=== PATIENT | male | born 1945 | race Caucasian/White ===

== ENCOUNTER → 2020-10-23 | Outpatient (CLI) | payer MEDICARE ==
[~2020-10-23] MED LIST: CLINDAMYCIN HC300 MG PO; LIPITOR TAB 2020 MG PO; LISINOPRIL40 MG PO; NORCO 7.5-3251 EACH PO; PLAVIX 75 MG TA75 MG PO; PROVENTIL HFA 61 INH INH; SPIRIVA18 MCG INH; SYMBICORT 160-1 INHA INH; ZYRTEC10 MG PO
== END ==
LOC: KOH-I 08:55
DX: Z87.891 Personal history of nicotine dependence (principal)
CPT/HCPCS: 71271

== ENCOUNTER → 2021-07-27 | Outpatient (CLI) | payer MEDICARE | LOC: EXRD 12:30 | DX: I73.9 Peripheral vascular disease, unspecified (principal); G62.9 Polyneuropathy, unspecified; R09.89 Other specified symptoms and signs involving the circulatory and respiratory systems | CPT/HCPCS: 93922; 93925 ==

== ENCOUNTER → 2021-08-16 | Outpatient (CLI) | payer MEDICARE | LOC: CT 10:41 | DX: M79.662 Pain in left lower leg (principal); M79.661 Pain in right lower leg; J44.9 Chronic obstructive pulmonary disease, unspecified; I10 Essential (primary) hypertension; I70.213 Atherosclerosis of native arteries of extremities with intermittent claudication, bilateral legs | CPT/HCPCS: 36415; 75635; 82565; Q9967 ==